=== PATIENT | female | born 1995 | race African-American/Black ===

== ENCOUNTER 2020-04-12 06:38 | Emergency (ER) | payer MEDICAID ==
[~2020-04-12] VITALS: Ht 165.1 cm; Wt 113.0 kg
[2020-04-12] MEDS ORDERED: OXYCODONE HCL/ACETAMINOPHEN 5/325MG TABLET PO ONE (07:15)
[2020-04-12 09:25] VITALS: BP 122/64
== END 2020-04-12 09:35 | disposition home or self-care (01) ==
LOC: ER 06:38
DX: M54.2 Cervicalgia (principal); M79.604 Pain in right leg; V43.62XA Car passenger injured in collision with other type car in traffic accident, initial encounter; Y93.89 Activity, other specified; Y92.488 Other paved roadways as the place of occurrence of the external cause
CPT/HCPCS: 73590; 81025; 99283

== ENCOUNTER 2020-07-01 16:43 | Emergency (ER) | payer MEDICAID ==
[~2020-07-01] VITALS: Ht 165.1 cm; Wt 104.0 kg
[2020-07-01 18:25] LABS: CLARITY URINE CLEAR (CLEAR); COLOR URINE YELLOW (YELLOW); KETONES URINE NEGATIVE (NEGATIVE); LEUKOCYTE ESTERASE URINE 2+ (NEGATIVE); NITRITE URINE NEGATIVE (NEGATIVE); OCCULT BLOOD URINE 1+ (NEGATIVE); PH URINE 6.5 (4.5-8.0); PROTEIN URINE NEGATIVE (NEGATIVE); SPECIFIC GRAVITY URINE 1.022 (1.005-1.030); UROBILINOGEN URINE 0.2 E.U./dL (0.2-1.0)
[2020-07-01] MEDS ORDERED: IBUPROFEN 600MG TABLET PO ONE (18:45)
[2020-07-01] MEDS ORDERED: CEFTRIAXONE SODIUM 1 G/VIAL IM ONE (19:15)
[2020-07-01] MEDS ORDERED: LIDOCAINE HCL 1% 20ML VIAL (Pyxis) INJ INFIL ONE (19:15)
[2020-07-01 19:47] VITALS: BP 121/74
== END 2020-07-01 19:47 | disposition home or self-care (01) ==
LOC: ER 16:51
DX: N30.00 Acute cystitis without hematuria (principal); F12.10 Cannabis abuse, uncomplicated; F17.210 Nicotine dependence, cigarettes, uncomplicated
CPT/HCPCS: 81003; 81025; 87086; 93005; 96372; 99284; J0696; J3490

== ENCOUNTER 2020-07-04 10:18 | Emergency (ER) | payer MEDICAID ==
[~2020-07-04] VITALS: Ht 165.1 cm; Wt 103.0 kg
[2020-07-04 11:26] LABS: CLARITY URINE CLEAR (CLEAR); COLOR URINE ORANGE (YELLOW); KETONES URINE TRACE (NEGATIVE); LEUKOCYTE ESTERASE URINE 1+ (NEGATIVE); NITRITE URINE POSITIVE (NEGATIVE); OCCULT BLOOD URINE 2+ (NEGATIVE); PROTEIN URINE NEGATIVE (NEGATIVE)
[2020-07-04 11:46] LABS: BASOPHILS % 0.5 % (0.0-2.0); EOSINOPHILS % 0.3 % (0.0-5.0); HEMATOCRIT. 40.3 % (36.0-48.0); HEMOGLOBIN. 13.2 g/dL (12.0-16.0); LYMPHOCYTES % 21.2 % (20.0-50.0); MEAN CORPUSCULAR HEMOGLOBIN 26.3 pg (28.0-32.0); MEAN CORPUSCULAR VOLUME 80.4 fL (81.0-99.0); MONOCYTES % 5.9 % (2.0-8.0); NEUTROPHILS % 72.1 % (40.0-76.0); PLATELET 327 x1000/uL (130-400); RED BLOOD CELL COUNT 5.01 mill/uL (4.2-5.4); RED CELL DISTRIBUTION WIDTH 15.8 % (11.6-14.6)
[2020-07-04 11:55] LABS: CHLORIDE 105 mEq/L (98-107)
[2020-07-04] MEDS ORDERED: ACETAMINOPHEN 325MG TABLET PO ONE (12:45)
[2020-07-04 14:22] LABS: PHENCYCLIDINE URINE SCREEN NEGATIVE (NEGATIVE)
[2020-07-04 14:23] LABS: *AMPHETAMINES SCREEN URINE NEGATIVE (NEGATIVE); *BARBITURATES SCREEN URINE NEGATIVE (NEGATIVE); *BENZODIAZEPINES SCREEN URINE NEGATIVE (NEGATIVE); *COCAINE SCREEN URINE NEGATIVE (NEGATIVE); METHADONE URINE SCREEN NEGATIVE (NEGATIVE); OPIATES URINE SCREEN NEGATIVE (NEGATIVE)
[2020-07-04 14:29] LABS: CANNABINOID URINE SCREEN PRESUMTIVE POSITIVE (NEGATIVE)
[2020-07-04 16:29] VITALS: BP 135/89
== END 2020-07-04 16:26 | disposition home or self-care (01) ==
LOC: ER 10:18
DX: N30.90 Cystitis, unspecified without hematuria (principal); R82.4 Acetonuria; D72.829 Elevated white blood cell count, unspecified; R70.0 Elevated erythrocyte sedimentation rate; R82.71 Bacteriuria
CPT/HCPCS: 36415; 80053; 80305; 81003; 81025; 85025; 85651; 93005; 99284